=== PATIENT | female | born 1950 | race Caucasian/White ===

== ENCOUNTER 2024-09-20 12:04 | Inpatient (IN) ==
[2024-09-20 13:30] LABS: Hematocrit (blood only) 34.2 % (37.0-47.0); Hemoglobin 11.4 g/dl (12.0-16.0); Mean Corpuscular Hemoglobin 30.8 pg (25.0-34.0); Mean Corpuscular Hgb Conc 33.3 g/dL (32.0-36.0); Mean Corpuscular Volume 92.4 fL (80.0-100.0); Mean Platelet Volume 10.5 fL (9.4-12.4); Platelet Count 238 K/uL (130-400); RDW Coefficient of Variation 13.3 % (11.5-14.5); RDW Standard Deviation 45.5 fL (36.4-46.3); White Blood Count 14.44 K/ul (4.8-10.8)
[2024-09-20 13:34] LABS: Albumin Globulin Ratio 1.5 (0.9-2); Albumin Level 3.7 gm/dl (3.4-5.0); Bilirubin,Total 0.6 mg/dl (0.2-1.0); Calcium 9.1 mg/dl (8.6-10.3); Creatinine Clr Calc Pharmacy 57.9 ml/min; Globulin 2.5 gm/dl (2.5-4.0); Potassium 3.9 mmol/L (3.5-5.1); Total Protein 6.2 gm/dl (6.0-8.3)
[2024-09-20 13:38] LABS: Troponin I High Sensitivity 4.3 pg/ml (0-14)
[2024-09-20 13:40] LABS: Partial Thromboplastin Ratio 0.8; Partial Thromboplastin Time 22 Seconds (21-31); Prothrombin Time 10.9 Seconds (9.0-12.0)
--- NOTE | 2024-09-20 13:47 | Emergency Department Note ---
Impression & Plan Acute diverticulitis, Acute GI bleeding, Syncope and collapse ED Provider Note HISTORY OF PRESENT ILLNESS: Patient is a 74-year-old female presenting with syncope and bloody bowel movements. Patient reports that she woke up this morning felt like she had to have a bowel movement and went to the bathroom and states that the bowl was filled with purple-colored stool and blood clots. She states that she got up from the commode and thinks she passed out, she landed on the floor. She states that she was able to get up and get around and has felt dizzy throughout the morning. She another bowel movement this morning that again appeared purple in color with large blood clots. She states that she again had another syncopal episode, prompting her to present to the emergency department. Denies any history of GI bleeds. She is on a baby aspirin daily after recent right foot surgery. Denies any other antiplatelet or anticoagulant therapies. She states that she feels quite lightheaded and dizzy when she stands up. Denies any chest pain or shortness of breath. Denies any nausea or vomiting. Denies any abdominal pain. ROS: as above PHYSICAL EXAM: Constitutional: Patient appears in no acute distress. HENT: Head: Normocephalic and atraumatic. Eyes: EOMI, PERRL Mouth/Throat: Mucous membranes moist. Neck: Trachea midline. Neck supple. Cardiovascular: Bradycardic with regular rhythm. No murmurs, rubs or gallops. Intact distal pulses. Pulmonary/Chest: No respiratory distress. Breath sounds clear and equal bilaterally. No wheezes or rales. Abdominal: Abdomen soft, no tenderness, rebound or guarding. Rectal: Chaperoned by nursing staff. Patient has maile melena on rectal exam and is Hemoccult positive. No palpable masses or hemorrhoids. Musculoskeletal: No edema, tenderness or deformity noted. Skin: Warm and dry. No rash, erythema, pallor or cyanosis Psychiatric: Appropriate mood and affect for situation. Neurological: Alert and keenly responsive. CN II-XII grossly intact, moving all extremities equally and fully. MDM: - Vitals signs showed bradycardia. - History obtained via patient. History as above. - Chronic conditions affecting care: HTN; HLD; hypothyroidism - Differential diagnoses include, but are not limited to: diverticular bleed; gastritis; bleeding peptic ulcer; symptomatic anemia; ACS; dysrhythmia - Order placed for continuous cardiac monitoring. At this time, monitor showed rate of 56 bpm with normal sinus rhythm, per my interpretation. - External medical records reviewed. Operative report dated 09/10/2024 was reviewed. Patient had right foot fourth and fifth digit hammertoe correction with fixation performed - EKG interpreted by myself showed normal sinus rhythm. Bradycardic with rate of 57 bpm. QT 448. No acute ischemic changes. - Laboratory workup interpreted by myself showed leukocytosis (WBC 14.44); anemia (Hgb 11.4); normal PT/INR; stable electrolytes; hyperglycemia (glucose 137); normal troponin - Patient given 80 mg IV protonix. - Type and screen ordered. - CT abdomen/pelvis with IV contrast showed evidence of acute diverticulitis, per radiology. - IV zosyn ordered - CXR negative for pneumonia, per my interpretation. - Discussion was had with keycase assembler about patient's case and need for admission - Hospitalist consulted for admission - Patient admitted to [facility] for further evaluation and management. ASSESSMENT AND PLAN: Diagnosis: Acute diverticulitis; acute GI bleeding; syncope and collapse Plan: admit Past Med/Surg History Problem List (Updated 09/20/24 @ 15:25 by Amanda Odom MD) Syncope and collapse (Acute) Acute GI bleeding (Acute) Acute diverticulitis (Acute) Medical History (Updated 09/20/24 @ 15:25 by Amanda Odom MD) History of gout Osteoarthritis Diverticular disease Hypothyroidism Hypertension Hyperlipidemia Surgical History History of bilateral tubal ligation History of colonoscopy History of cholecystectomy History of colon resection per pt in @ [facility]--8 inches removed due to diverticulitis History of tooth extraction partial lower/upper dentures Family History Other No family history of adverse response to anesthesia Social History Smoking Status: Never smoker Tobacco Type: Cigarettes Second Hand Exposure: No; Do You Dip or Chew Tobacco: No; Hx Alcohol Use: Yes Hx Substance Use: No Preferred Language: Thai Communication Ability: Effective Program Director Scouting Required: No Beliefs That Will Affect Care: None Current Living Situation: Spouse Feels Safe at Home: Yes Assistive Devices: Denture - Upper, Denture - Lower and Glasses Allergies Allergies Allergy/AdvReac Type Severity Reaction Status Date / Time No Known Allergies Allergy Verified 09/08/24 09:24 Home Meds Home Medications Medication Instructions Recorded Confirmed allopurinol 100 mg tablet 100 mg PO QAM 09/07/24 09/20/24 cyanocobalamin (vitamin B-12) 1,000 mcg PO QAM 09/07/24 09/20/24 1,000 mcg tablet (Vitamin B-12) levothyroxine 75 mcg tablet 75 mcg PO QAM 09/07/24 09/20/24 lisinopril 20 1 tab PO QAM 09/07/24 09/20/24 mg-hydrochlorothiazide 25 mg tablet potassium chloride 10 mEq 20 meq PO QAM 09/07/24 09/20/24 tablet,extended release(part/cryst) (Klor-Con M) rosuvastatin 10 mg tablet 10 mg PO QAM 09/07/24 09/20/24 Results & Data (ED) Vital Signs Vital Signs - 24 hr 09/20/24 12:05 09/20/24 13:04 09/20/24 13:04 Temperature 36.8 C Temperature Source Temporal Artery Scan Pulse Rate - Lying Pulse Rate - Sitting Pulse Rate - Standing Pulse Rate 62 Pulse Rate [Apical] 66 Respiratory Rate 20 19 Respiratory Effort / Characteristics Non-Labored Spontaneous Respiratory Depth Normal Respiratory Pattern Blood Pressure - Lying Blood Pressure - Sitting Blood Pressure- Standing Blood Pressure 144/80 H Blood Pressure [Right Arm] 132/56 L Blood Pressure Mean 101 Blood Pressure Mean [Right Arm] 81 Pulse Oximetry 97 92 Oxygen Delivery Method Room Air Room Air Room Air Sepsis Recent Fever Within 48 Hours No Sepsis New/Unexplained Change in Mental Status No Sepsis Action Taken by Nursing No Action Required 09/20/24 13:54 09/20/24 13:58 09/20/24 15:16 Temperature Temperature Source Pulse Rate - Lying 56 L Pulse Rate - Sitting 66 Pulse Rate - Standing 76 Pulse Rate 56 L Pulse Rate [Apical] 68 Respiratory Rate 18 Respiratory Effort / Characteristics Non-Labored Spontaneous Respiratory Depth Normal Respiratory Pattern Regular Blood Pressure - Lying 122/62 Blood Pressure - Sitting 131/67 Blood Pressure- Standing 134/69 Blood Pressure Blood Pressure [Right Arm] 148/70 H Blood Pressure Mean Blood Pressure Mean [Right Arm] 96 Pulse Oximetry 96 Oxygen Delivery Method Room Air Sepsis Recent Fever Within 48 Hours Sepsis New/Unexplained Change in Mental Status Sepsis Action Taken by Nursing Laboratory Data 09/20/24 12:46 09/20/24 12:46 Lab Results 09/20/24 09/20/24 Range/Units 12:46 13:41 WBC 14.44 H (4.8-10.8) K/ul RBC 3.70 L (4.20-5.40) M/uL Hgb 11.4 L (12.0-16.0) g/dl Hct 34.2 L (37.0-47.0) % MCV 92.4 (80.0-100.0) fL MCH 30.8 (25.0-34.0) pg MCHC 33.3 (32.0-36.0) g/dL RDW Std Deviation 45.5 (36.4-46.3) fL RDW Coeff of Afua 13.3 (11.5-14.5) % Plt Count 238 (130-400) K/uL MPV 10.5 (9.4-12.4) fL PT 10.9 (9.0-12.0) Seconds INR 1.0 (0.9-1.1) APTT 22 (21-31) Seconds PTT Ratio 0.8 Sodium 140 (136-145) mmol/L Potassium 3.9 (3.5-5.1) mmol/L Chloride 105 (98-107) mmol/L Carbon Dioxide 30 (21-32) mmol/L Anion Gap 5 (3-11) BUN 20 (6-23) mg/dl Creatinine 0.87 (0.6-1.2) mg/dl Est Cr Clr Drug Dosing 57.9 ml/min eGFR 69.44 BUN/Creatinine Ratio 23.0 H (10-20) Glucose 137 H (70-99(Fasting)) mg/dl Calcium 9.1 (8.6-10.3) mg/dl Total Bilirubin 0.6 (0.2-1.0) mg/dl AST 15 (13-39) U/L ALT 8 (7-52) U/L Alkaline Phosphatase 69 (34-104) U/L Troponin I High Sens 4.3 (0-14) pg/ml Total Protein 6.2 (6.0-8.3) gm/dl Albumin 3.7 (3.4-5.0) gm/dl Globulin 2.5 (2.5-4.0) gm/dl Albumin/Globulin Ratio 1.5 (0.9-2) POC Stool Occult Blood Positive A (Negative) Blood Type O Positive Antibody Screen NEGATIVE Administered Medications Discontinued Medications Pantoprazole Sodium 80 mg/ (Dextrose) 120 mls @ 480 mls/hr IV ONE STA Stop: 09/20/24 13:54 Last Infusion: 09/20/24 14:52 Dose: Infused Documented By: Admin: 09/20/24 14:20 Dose: 480 mls/hr Documented By: ELEUTERIO Piperacillin Sod/Tazobactam Sod (Zosyn) 4.5 gm in 100 mls @ 200 mls/hr IV NOW ONE; Protocol Stop: 09/20/24 15:23 Last Admin: 09/20/24 15:14 Dose: 200 mls/hr Documented By: ELEUTERIO Ioversol (Optiray 320 100ml) 94 ml IV ONCE ONE Stop: 09/20/24 14:08 Last Admin: 09/20/24 14:07 Dose: 94 ml Documented By: GODWIN Imaging Data Radiologist's Impression: Abdomen/Pelvis CT 09/20/24 12:42 CT abd pelvis IV con only CLINICAL HISTORY: abdominal pain, dizziness, rectal bleeding TECHNIQUE: Helical axial images of the abdomen and pelvis were obtained and displayed. Automated dose lowering techniques and/or adjustment according to patient size were utilized for this exam. This exam was performed with intravenous contrast. CT DOSE: 1320.32 mGy.cm COMPARISON: None available at the time of this dictation. FINDINGS: Lower chest: No acute abnormality. Liver: Unremarkable. No focal lesions are seen. Gallbladder and biliary tree: Patient is status post cholecystectomy. No intra- or extrahepatic biliary ductal dilation. Pancreas: Unremarkable, no focal lesions. Spleen: Splenule is incidentally noted. Adrenals: Unremarkable. Kidneys and ureters: Renal cysts are seen. Bladder: Unremarkable. Reproductive organs: Unremarkable. Bowel: Numerous diverticula are seen. Colonic wall thickening and fat stranding is seen in the sigmoid colon. Postsurgical changes of bowel resection are seen. The appendix appears normal. Lymph nodes Retroperitoneal: Unremarkable. Pelvic: Unremarkable. Mesenteric: Unremarkable. Peritoneum: Fat stranding is seen in the left lower quadrant. No pneumoperitoneum or drainable fluid collection. Vessels: Atherosclerotic calcifications are seen. Abdominal wall: A fat-containing umbilical hernia is seen. Bones: Degenerative changes in the visualized spine. IMPRESSION: Findings are compatible with acute diverticulitis without evidence of perforation or abscess. ACT 112: Negative or not required by law. Electronically signed by: Ric Kilgore M.D. 09/20/2024 2:44 PM Chest X-Ray 09/20/24 14:24 XR chest 1V portable CLINICAL HISTORY: Syncope. COMPARISON STUDY: Chest radiograph August 12, 2024. FINDINGS: Lung volumes are normal. Lungs are clear. There is no pneumothorax or pleural effusion. Cardiac size is normal. Mediastinal contours are normal. There is no evidence for pulmonary edema. IMPRESSION: No acute cardiopulmonary findings. ACT 112: Negative or not required by law. Electronically signed by: Daniel Hein M.D. 09/20/2024 2:55 PM Discharge Plan Visit Data Chief Complaint: Rectal Bleed Stated Complaint: RECTAL BLEEDING, SHAKING ED Provider: Amanda Odom Discharge Problem: Acute diverticulitis, Acute GI bleeding, Syncope and collapse Forms Stand Alone Forms: [facility] [employer] Prescriptions Prescriptions: No Action cyanocobalamin (vitamin B-12) [Vitamin B-12] 1,000 mcg Tablet 1,000 mcg PO QAM allopurinol 100 mg Tablet 100 mg PO QAM levothyroxine 75 mcg Tablet 75 mcg PO QAM lisinopril-hydrochlorothiazide 20-25 mg Tablet 1 tab PO QAM rosuvastatin 10 mg Tablet 10 mg PO QAM potassium chloride [Klor-Con M10] 10 mEq Tablet,Er Particles/Crystals 20 meq PO QAM Referrals Referrals: PCP,NO [Physician] -
[2024-09-20] MEDS: OPTIRAY 320 100ml IV ONE (14:07)
[2024-09-20] MEDS: PANTOprazole 80 MG in DEXTROSE 5% 100 ML IV STA (14:20)
--- NOTE | 2024-09-20 14:46 | CT Scan Report ---
CT abd pelvis IV con only CLINICAL HISTORY: abdominal pain, dizziness, rectal bleeding TECHNIQUE: Helical axial images of the abdomen and pelvis were obtained and displayed. Automated dose lowering techniques and/or adjustment according to patient size were utilized for this exam. This e xam was performed with intravenous contrast. CT DOSE: 1320.32 mGy.cm COMPARISON: None available at the time of this dictation. FINDINGS: Lower chest: No acute abnormality. Liver: Unremarkable. No focal lesions are seen. Gallbladder and biliary tree: Patient is status post cholecystectomy. No intra- or extrahepatic bilia ry ductal dilation. Pancreas: Unremarkable, no focal lesions. Spleen: Splenule is incidentally noted. Adrenals: Unremarkable. Kidneys and ureters: Renal cysts are seen. Bladder: Unremarkable. Reproductive organs: Unremarkable. Bowel: Numerous diverticula are seen. Colonic wall thickening and fat stranding is seen in the sigmoi d colon. Postsurgical changes of bowel resection are seen. The appendix appears normal. Lymph nodes Retroperitoneal: Unremarkable. Pelvic: Unremarkable. Mesenteric: Unremarkable. Peritoneum: Fat stranding is seen in the left lower quadrant. No pneumoperitoneum or drainable fluid collection. Vessels: Atherosclerotic calcifications are seen. Abdominal wall: A fat-containing umbilical hernia is seen. Bones: Degenerative changes in the visualized spine. IMPRESSION: Findings are compatible with acute diverticulitis without evidence of perforation or abscess. ACT 112: Negative or not required by law. Electronically signed by: Ric Kilgore M.D. 09/20/2024 2:44 PM
--- NOTE | 2024-09-20 14:57 | XRay Report ---
XR chest 1V portable CLINICAL HISTORY: Syncope. COMPARISON STUDY: Chest radiograph August 12, 2024. FINDINGS: Lung volumes are normal. Lungs are clear. There is no pneumothorax or pleural effusion. Car diac size is normal. Mediastinal contours are normal. There is no evidence for pulmonary edema. IMPRESSION: No acute cardiopulmonary findings. ACT 112: Negative or not required by law. Electronically signed by: Daniel Hein M.D. 09/20/2024 2:55 PM
[2024-09-20] MEDS: PIPERACILLIN/TAZOBACTAM 4.5 GM/100 ML BAG IV ONE (15:14)
--- NOTE | 2024-09-20 15:22 | History & Physical Report ---
Date of Service September 20, 2024 Assessment & Plan (1) Acute GI bleeding: Plan: Massiel presents after two episodes of dark/purple bloody stools overnight with one episode of syncope. She did not hit her head. Recent foot surgery 09/08, started on ASA 81mg for DVT prevention and meloxicam for pain control taking q6 hours for the first 1-2 days, now 1-2 times per day. Hgb dropped 14.8 (on 08/12) --> 11.4 Stool Occult Blood: positive - ER provider reports melena during exam Received 80mg IV Protonix in the ED, continue 40mg IV BID GI consulted Keep NPO - strict Repeat H&H this evening AM CBC and BMP (2) Acute diverticulitis: Plan: CT A/P: acute diverticulitis without evidence of perforation or abscess. WBC 14 on admission. Afebrile. Continue Zosyn (3) Syncope and collapse: Plan: CXR: no acute cardiopulmonary findings EKG: sinus bradycardia, no ST changes Patient reports recent echo completed last month as part of pre-operative workup. Suspect due to blood/volume loss Lisinopril/HCTZ - held Plan Chronic stable medical conditions: * gout allopurinol held while strict NPO * HLD rosuvastatin held while strict NPO * hypothyroid Synthroid held while strict NPO Dispo: med/tele DVT proh: hold chemical ppx with possible GIB, SCDs History of Present Illness Primary Care Provider: Sirisha Vallejo DO Massiel is a 74F with a past medical hx of Gout, HLD, HTN, hypothyroid and prediabetes. Recent right foot fourth and fifth digit hammertoe Correction on 09/08, baby aspirin daily since. She presents to the ER after 2 episodes of bloody stools. states she got up in the middle the night and had pain with her bowel movement and saw purpleish blood in the toilet. When she tried to stand up she felt very dizzy and weak and took a while to regain her strength. When she did finally stand up she had a syncopal episode. She denies hitting her head. She made back to bed and got up about 1 hour later and had another bowel movement with more clots at this time and blood. She states the blood just feels the toilet does not seem to be mixed in with the stool, she cannot really see the stool. She reports lower abdominal pain since the first bowel movement that has not resolved, however this is mild. Patient has had diverticulitis before with a history of colon resection. She de nies a history of GI bleeding. Of note, patient had recent foot surgery on 09/08 and was placed on baby aspirin and has been taking meloxicam for pain. States for the first 1 to 2 days she was taking meloxicam every 6 hours. Over the last few days she is not taking the meloxicam 1-2 times a day. Recent changes in medications: thyroid medication, lower doses Take medications today: no Alcohol: no Smoking: none CPAP: no Code Status: DNR/DNI ER course: 80mg IV protonix Zosyn x1 Allergies Allergy/AdvReac Type Severity Reaction Status Date / Time No Known Allergies Allergy Verified 09/08/24 09:24 Home Medications Medication Instructions Recorded Confirmed Type allopurinol 100 mg tablet 100 mg PO QAM 09/07/24 09/20/24 History cyanocobalamin (vitamin B-12) 1,000 mcg PO QAM 09/07/24 09/20/24 History 1,000 mcg tablet (Vitamin B-12) levothyroxine 75 mcg tablet 75 mcg PO QAM 09/07/24 09/20/24 History lisinopril 20 1 tab PO QAM 09/07/24 09/20/24 History mg-hydrochlorothiazide 25 mg tablet potassium chloride 10 mEq 20 meq PO QAM 09/07/24 09/20/24 History tablet,extended release(part/cryst) (Klor-Con M) rosuvastatin 10 mg tablet 10 mg PO QAM 09/07/24 09/20/24 History Past Med/Surg History Problem List Syncope and collapse (Acute) Acute GI bleeding (Acute) Acute diverticulitis (Acute) Medical History History of gout Osteoarthritis Diverticular disease Hypothyroidism Hypertension Hyperlipidemia Surgical History History of bilateral tubal ligation History of colonoscopy History of cholecystectomy History of colon resection per pt in 1990s @ [facility]--8 inches removed due to diverticulitis History of tooth extraction partial lower/upper dentures Family History Other No family history of adverse response to anesthesia Social History Smoking Status: Never smoker Tobacco Type: Cigarettes Second Hand Exposure: No; Do You Dip or Chew Tobacco: No; Hx Alcohol Use: Yes Hx Substance Use: No Preferred Language: [place] Communication Ability: Effective Pipe Organ Installer Required: No Beliefs That Will Affect Care: None Current Living Situation: Spouse Feels Safe at Home: Yes Assistive Devices: Denture - Upper, Denture - Lower and Glasses Review of Systems Review of Systems: All systems reviewed & are unremarkable except as noted in Subjective Physical Exam Physical Exam: General: NAD, VS as above, sitting in bed Resp: normal respiratory effort, lungs clear to auscultation CV: RRR, + murmur, Abd: normal bowel sounds, non tender, Extremities: Moves all extremities, no edema. Right foot in boot postoperatively. Neuro: A&O x3, Skin: intact, no lesions noted. does NOT appear pale. Results & Data Results & Data Vital Signs (Past 12 Hours) Vital Signs Temp Pulse Pulse Resp BP BP Pulse Ox 09/20/24 13:58 56 L 09/20/24 13:04 09/20/24 13:04 66 19 132/56 L 92 09/20/24 12:05 98.2 F 62 20 144/80 H 97 O2 Del Method 09/20/24 13:58 09/20/24 13:04 Room Air 09/20/24 13:04 Room Air 09/20/24 12:05 Room Air Laboratory Results CBC, coag, chemistry reviewed Diagnostic Findings chest x-ray Abdominal CT reviewed Supervising Physician Co-Signing Physician Notes Patient seen and examined, chart reviewed, case discussed with Martina Dee PA-C and I agree with the assessment and plan as above except as otherwise noted Labs and images reviewed 74-year-old female who presents with syncope and collapse and GI bleeding. Crampy painful BM with purple/red BM overnight. Passed out after standing. 2nd BM later in the morning with blood and clots. Prior hx diverticulitis with pa rtial colon resection in the past. She is found to have acute diverticulitis on CT. Hemoglobin 11.4 from baseline of 14.8. BUN is not elevated, suspect lower GI bleed in the setting of diverticulitis. Agree with Zosyn. 2 units matched, patient is not tachycardic or hypotensive and remains with hemoglobin greater than 10. Will trend H&H and follow clinically. Agree with Zosyn. Has been on baby aspirin and meloxicam q6h now 1-2 times a day after foot surgery 09/08/24. Is at risk of UGIB due to aspirin, meloxicam use and with purplish blood ?melena, although BUN is wnl. Will continue PPI for now and GI is consulted. Agree with management as above. Patient feels greatly improved at the bedside and is no longer lightheaded or dizzy, she is normotensive and without tachycardia. PG Care Time/CCT Total # of Minutes Spent Total Time Spent with Patient: Total time spent is greater than 50% in coordination of care (as documented) at patient's floor/unit and/or counseling patient: Coding Level of Care Code 28726 INT INP/OBS CARE 3/75MIN Diagnoses Acute GI bleeding K92.2 Acute diverticulitis K57.92 Syncope and collapse R55
--- NOTE | 2024-09-20 16:20 | Gastrointestinal Consultation ---
Date of Consultation September 20, 2024 Assessment & Plan (1) Acute diverticulitis: (2) Acute GI bleeding: Plan -Advise continuing IV antibiotics for diverticulitis -Continue to monitor H/H -PPI therapy to cover for potential upper GI source given NSAID use, though patient has no upper GI symptoms. -Will need eventual endoscopic evaluation once recovered from diverticulitis Supervising Physician Co-Signing Physician Notes I examined the patient and reviewed patient's chart , laboratory data and imaging studies. I agree with with assessment and plan of care as suggested by advanced practice provider. Presents with mild acute diverticulitis and bloody bowel movements, likely diverticular bleed. History of diverticulitis 4 years ago. Continue antibiotics. Monitor CBC. If remains stable defer colonoscopy after diverticulitis heals in 4 to 6 weeks. History of Present Illness Reason for Consultation: GI bleeding History of Present Illness Patient is a 74 yo female with PMH of Gout, HLD, HTN, hypothyroidism, & prediabetes. She had a recent surgery for hammertoe in August 2024 and takes Meloxicam and baby aspirin daily. She felt dizzy and weak at home and moved her bowels to see a dark purple stool.She presented to the ED. She notes a history of colonoscopy within the past 5 years. She has a history of multiple abdominal surgeries and diverticulitis with history of bowel resection. Ct scan of the abdomen/pelvis today shows an acute diverticulitis of the sigmoid colon. H/H 11.4/34.2. She notes some associated LLQ tenderness. No heartburn or reflux. No epigastric pain. She was started on IV Zosyn in the ED. Allergies Allergy/AdvReac Type Severity Reaction Status Date / Time No Known Allergies Allergy Verified 09/08/24 09:24 Home Medications Medication Instructions Recorded Confirmed Type allopurinol 100 mg tablet 100 mg PO QAM 09/07/24 09/20/24 History cyanocobalamin (vitamin B-12) 1,000 mcg PO QAM 09/07/24 09/20/24 History 1,000 mcg tablet (Vitamin B-12) levothyroxine 75 mcg tablet 75 mcg PO QAM 09/07/24 09/20/24 History lisinopril 20 1 tab PO QAM 09/07/24 09/20/24 History mg-hydrochlorothiazide 25 mg tablet potassium chloride 10 mEq 20 meq PO QAM 09/07/24 09/20/24 History tablet,extended release(part/cryst) (Klor-Con M) rosuvastatin 10 mg tablet 10 mg PO QAM 09/07/24 09/20/24 History Patient History Medical History History of gout Osteoarthritis Diverticular disease Hypothyroidism Hypertension Hyperlipidemia Surgical History History of bilateral tubal ligation History of colonoscopy History of cholecystectomy History of colon resection per pt in 1990s @ [facility]--8 inches removed due to diverticulitis History of tooth extraction partial lower/upper dentures Family History Other No family history of adverse response to anesthesia Social History Smoking Status: Never smoker Tobacco Type: Cigarettes Second Hand Exposure: No; Do You Dip or Chew Tobacco: No; Hx Alcohol Use: Yes Hx Substance Use: No Preferred Language: Divehi Communication Ability: Effective Sludge Filtration Attendant Required: No Beliefs That Will Affect Care: None Current Living Situation: Spouse Feels Safe at Home: Yes Assistive Devices: Denture - Upper, Denture - Lower and Glasses Review of Systems Constitutional: no fever and no chills Respiratory: no cough and no dyspnea Cardiovascular: no chest pain Gastrointestinal: + abdominal pain, + blood in stools and + melena Psychiatric: no problem reported Physical Exam Constitutional: well developed Respiratory: normal respiratory effort Cardiovascular: Rate/Rhythm: regular rate Gastrointestinal (Abdomen): Inspection/Auscultation: abdomen normal to inspection and normal bowel sounds Percussion/Palpation: + abdomen tender and abdomen soft Psychiatric: Orientation: alert and oriented x 3 Results & Data Vital Signs (Past 12 Hours) Vital Signs Temp Pulse Pulse Resp BP BP Pulse Ox 09/20/24 15:16 68 18 148/70 H 96 09/20/24 13:58 56 L 09/20/24 13:04 09/20/24 13:04 66 19 132/56 L 92 09/20/24 12:05 36.8 C 62 20 144/80 H 97 O2 Del Method 09/20/24 15:16 Room Air 09/20/24 13:58 09/20/24 13:04 Room Air 09/20/24 13:04 Room Air 09/20/24 12:05 Room Air PG Care Time/CCT Total # of Minutes Spent Total Time Spent with Patient: Total time spent is greater than 50% in coordination of care (as documented) at patient's floor/unit and/or counseling patient: Coding Level of Care Code 15025 IN/OBS CONSULT LVL 3,45M Diagnoses Acute diverticulitis K57.92 Acute GI bleeding K92.2
--- NOTE | 2024-09-20 17:20 | Electrocardiogram Report ---
Test Reason : Blood Pressure : */* mmHG Vent. Rate : 57 BPM Atrial Rate : 57 BPM P-R Int : 160 ms QRS Dur : 66 ms QT Int : 448 ms P-R-T Axes : 20 -15 40 degrees QTcB Int : 436 ms Sinus bradycardia Minimal voltage criteria for LVH, may be normal variant Abnormal ECG No previous ECGs available Confirmed by Mendoza Shen ([id number]) on 09/20/2024 5:20:13 PM Referred By: Confirmed By: Mendoza Shen
[2024-09-20] MEDS: metroNIDAZOLE 500 MG/100 ML BAG IV SCH (17:55)
--- OUTSIDE RECORDS SUMMARY | 2024-09-20 18:55 | External Medical Summary | Continuity of Care Document ---
Author Name Unknown Organization [facility] [id number] Address [address] [place] [id number] Care Team Providers Care Air Table Operator Name Role Phone Sirisha Vallejo Primary Care Physician [phone] Encounter [facility] [id number] Date(s): 09/15/24 - 09/15/24 [facility] [address] [id number] [place] [id number] Encounter Diagnosis S/P foot surgery, right(Discharge Diagnosis) - 09/15/24 Discharge Disposition: Home or Self Care Attending Physician: GIOVANA Bailey Christina L Referring Physician: DO Vallejo Stephanie Marie Allergies, Adverse Reactions, Alerts No Known Allergies Assessment and Plan Extracted from: Title:Follow Up Visit Author:GIOVANA Bailey, Irais Rogers Date:09/15/24 1.S/P foot surgery, right patient to continue decrease activity levelwith use of single-point cane in postop shoe post op xrays reviewed todayshowing normal postop position of the right foot dressings removed and incisions cleanedwith Hibiclens dressings re appliedconsisting of Adaptic gauze roll gauze and an Dashawn bandage sutureswill remain in place for 1 additional week patient to wear cam boot no calf pain noted and discussed signs of a DVT continue Tylenol/ibuprofen for pain follow upOctober 31 at 8:45 AM Medications allopurinol 100 mg oral tablet Start: 04/22/24 7:38:00 AM EDT, 1 tab, PO, Daily, Disp# 90 tab, Refills: 1, Pharmacy: [facility] [id number] Start Date: 04/22/24 Status: Ordered Bactrim DS 800 mg-160 mg oral tablet Start: 08/17/24 12:25:00 PM EDT, trimethoprim 1 tab, PO, bid, Disp# 6 tab, Pharmacy: [facility]/pharmacy #[id number] Start Date: 08/17/24 Stop Date: 08/20/24 Status: Ordered hydrochlorothiazide-lisinopril 25 mg-20 mg oral tablet Start: 09/17/24 7:55:00 AM EDT, 1 tab, PO, Daily, Disp# 90 tab, Refills: 0, Pharmacy: [facility] [id number] Start Date: 09/17/24 Status: Ordered Klor-Con M10 oral tablet, extended release Start: 10/10/23 9:44:00 AM EST, 2 tab, PO, Daily, Disp# 180 tab, Refills: 3, [id number] Start Date: 10/10/23 Stop Date: 10/04/24 Status: Ordered levothyroxine 75 mcg (0.075 mg) oral tablet Start: 08/22/24 8:43:00 PM EDT, 1 tab, PO, Daily, Disp# 30 tab, Refills: 2, Pharmacy: [facility]/pharmacy #[id number] Start Date: 08/22/24 Stop Date: 11/20/24 Status: Ordered meloxicam 7.5 mg oral tablet Start: 10/10/23 9:41:00 AM EST, 1 tab, PO, Daily, Disp# 30 tab, Refills: 5, [id number] Start Date: 10/10/23 Stop Date: 04/07/24 Status: Ordered [place] 5 mg-325 mg oral tablet Start: 08/12/24 1:28:00 PM EDT, 1 tab, PO, q6h, Disp# 30 tab, Refills: 0, not to exceed 8 tablets/day, PRN: as needed for pain, Pharmacy: [facility]/pharmacy #[id number] Start Date: 08/12/24 Stop Date: 08/19/24 Status: Ordered rosuvastatin 10 mg oral tablet Start: 10/10/23 9:38:00 AM EST, 1 tab, PO, Daily, Disp# 90 tab, Refills: 3, Pharmacy: [facility]/pharmacy #[id number] Start Date: 10/10/23 Stop Date: 10/04/24 Status: Ordered Vitamin B12 50 mcg oral tablet Start: 06/25/23 12:55:00 PM EDT, 1 tab, PO, Daily Start Date: 06/25/23 Status: Ordered Mental Status 09/15/24 Barriers to Learning one year None evide nt Mandatory Health Literacy Documentation Yes Health Literacy Communication Barriers N ever Primary Language Persian Problem List Condition Confirmation Course Effective Dates Status H ealth Status Informant Right foot pain Confirmed Active Gout Confirmed Active Hammertoe of right foot Confirmed Active S/P foot surgery, right Confirmed Active Hyperlipidemia Confirmed Active Hypertension Confirmed Active Hypothyroidism Confirmed Active Prediabetes Confirmed Active Diagnosis Diagnosis Type Effective Dates Health Status Cl inical Service Informant S/P foot surgery, right Discharge Diagnosis 09/15/24 Non-Specified Procedures Procedure Date Related Diagnosis Body Site Status Colon operation Completed Social History Social History Type Response Smoking Status Never smoked cigaret mckayla Sex Female Sex Representation Female (finding) Ortho Outpt Note * GIOVANA Bailey Christina L: PERFORM Event Display: Ortho Outpt Note Authored Date: [id number] Chief Complaint right foot post-op,, Primary Care Provider DO Vallejo Stephanie Marie Referring Provider GIOVANA Bailey Christina L Subjective Patient is a very pleasant 74-year-old female presenting today for postop evaluation, status post right foot fourth and fifth digithammertoe correction surgery with fixation. Postop visit #1. Postop day #7. Date of surgery September 08, 2024 Patient is doing well she is compliant with recommended offloading restrictions after surgery she is only walking with her single-point cane with weight to the right heelshe is using her postop shoe, taking her aspirin 81 mg for DVT prevention,and has no signs consistent with a DVT,she has nopain in her calf and actually no discomfortshe took 2 meloxicam at the beginning of the surgery and felt that it improved her paincurrently she is in no acute discomfort. Review of Systems No pertinent positives Objective Physical Exam Problem focused right foot: Dorsalis pedis pulse palpable 2 out of 4, posterior tibial pulse palpable 2 out of 4, capillary refill time less than 3 seconds,skin turgor is good to all digits of the right foot pedal hair is present. Gross sensation intact all digits of the right foot. Skin is clean dry and intact without maceration or breakdown there are no open wounds or lesions. Right foot fourthtoe incisionall sutures intact no dehiscence no cellulitis no drainage toe in anatomical positionK wire at distal aspect of the toe without drainage Right footfifth toe incisionall sutures intact no dehiscence no cellulitis no drainageK wire present at distal aspect of toe without drainagetoe in anatomical position Range of motion not yet checked due to recent Surgery Calfis supple without swelling continuing aspirin 81 mg for DVT prevention X-Ray dictation 3 views right foot:3 views of the right foot show stable and intact fixation at right fourth and fifth digitfollowing hammertoe corrective surgery. Stable postop appearance of the foot. I personally performed the interpretation of 3 views of the right foot. Assessment/Plan 1.S/P foot surgery, right patient to continue decrease activity levelwith use of single-point cane in postop shoe post op xrays reviewed todayshowing normal postop position of the right foot dressings removed and incisions cleanedwith Hibiclens dressings re appliedconsisting of Adaptic gauze roll gauze and an Dashawn bandage sutureswill remain in place for 1 additional week patient to wear cam boot no calf pain noted and discussed signs of a DVT continue Tylenol/ibuprofen for pain follow upOctober 31 at 8:45 AM Electronic Signature on File Electronically Reviewed/Signed by: Erma Bailey DPM Author Signature Dt/Tm:09/15/2024 01:23 PM Division of Sports Medicine CLR Patient Care team information Care Team Personnel Name: DO Vallejo Stephanie Marie Position: Physician - Family Med Member Role: Primary Care Provider Address: [address] [place] [address] [place] Care Team Related Persons Name: RAYMUNDO Blake, LUIS A Davila
[2024-09-20] MEDS: PANTOprazole 40 MG/10 ML SYR IV SCH ×2 (20:02→21:52)
[2024-09-20] MEDS: CIPROFLOXACIN / D5W 400 MG/200 ML BAG IV SCH (20:07)
[2024-09-20 20:43] LABS: Hematocrit (blood only) 31.1 % (37.0-47.0); Hemoglobin 10.4 g/dl (12.0-16.0)
[2024-09-20] MEDS ORDERED: CIPROFLOXACIN / D5W 200 MG/100 ML BAG IV SCH (21:00)
[2024-09-20] MEDS ORDERED: ACETAMINOPHEN 1,000 MG/100 ML VIAL IV PRN (21:40)
[2024-09-20] MEDS: PIPERACILLIN/TAZOBACTAM 4.5 GM/100 ML BAG IV SCH (22:31)
[2024-09-21 06:26] LABS: Basophils # (auto) 0.03 K/uL (0.00-0.20); Basophils % (auto) 0.2 %; Eosinophils % (auto) 0.8 %; Hematocrit (blood only) 26.9 % (37.0-47.0); Hemoglobin 9.1 g/dl (12.0-16.0); Immature Granulocytes # (auto) 0.06 K/uL (0.01-0.20); Immature Granulocytes % (auto) 0.5 %; Lymphocytes # (auto) 2.69 K/uL (1.20-3.40); Lymphocytes % (auto) 22.1 %; Mean Corpuscular Hemoglobin 30.8 pg (25.0-34.0); Mean Corpuscular Hgb Conc 33.8 g/dL (32.0-36.0); Mean Corpuscular Volume 91.2 fL (80.0-100.0); Mean Platelet Volume 10.5 fL (9.4-12.4); Monocytes # (auto) 0.84 K/uL (0.11-0.59); Monocytes % (auto) 6.9 %; Neutrophils # (auto) 8.44 K/uL (1.40-6.50); Neutrophils % (auto) 69.5 %; Platelet Count 209 K/uL (130-400); RDW Coefficient of Variation 13.4 % (11.5-14.5); RDW Standard Deviation 44.7 fL (36.4-46.3); Red Blood Count 2.95 M/uL (4.20-5.40); White Blood Count 12.16 K/ul (4.8-10.8)
[2024-09-21 06:44] LABS: Calcium 8.5 mg/dl (8.6-10.3); Creatinine Clr Calc Pharmacy 53.3 ml/min; Potassium 3.4 mmol/L (3.5-5.1)
[2024-09-21] MEDS: POTASSIUM CHLORIDE / WTR 10 MEQ/100 ML PLCT IV ONE (09:51)
--- NOTE | 2024-09-21 11:39 | Gastroenterology Progress Note ---
Date of Service September 21, 2024 Assessment & Plan (1) Acute diverticulitis: Plan: -Continue IV antibiotics with eventual transition to po for a total of 10 day treatment course -Continue to monitor H/H and for further ongoing GI bleeding -Will need eventual colonoscopy in 6 weeks -Tolerating a liquid diet at present; Low residue diet to be continued on d/c Admission and Anticipated Discharge Date Admission Date: September 20, 2024 Supervising Physician Co-Signing Physician Notes I examined the patient and reviewed patient's chart , laboratory data and imaging studies. I agree with with assessment and plan of care as suggested by advanced practice provider. Hemoglobin down to 9.1. The patient still has rectal bleeding also decreased. Abdominal pain has improved. Much less tender on abdominal examination. Impression/recommendations: Acute sigmoid diverticulitis and diverticular bleeding. Continue antibiotics. Outpatient colonoscopy in 6 weeks or sooner if bleeding continues. Subjective Patient is a 74 yo female with diverticulitis. She notes her rectal bleeding has improved. She notes some streaks with a bowel movement at this point, but she is no longer having significantly bloody stool. H/H this AM 9.1/26.9. She notes she has some lower abdominal tenderness. She tolerated a liquid diet today. Review of Systems Gastrointestinal: + abdominal pain and + blood in stools Physical Exam Gastrointestinal (Abdomen): Inspection/Auscultation: abdomen normal to insp ection Percussion/Palpation: + abdomen tender and abdomen soft Results & Data Results & Data Vital Signs (Past 12 Hours) Vital Signs Temp Pulse Pulse Resp BP Pulse Ox O2 Del Method 09/21/24 10:49 36.6 C 71 16 130/76 96 Room Air 09/21/24 07:33 36.8 C 65 16 101/56 L 92 Room Air 09/21/24 07:00 65 09/21/24 03:50 37.1 C 74 18 105/58 L 93 Room Air 09/21/24 03:03 73 PG Care Time/CCT Total # of Minutes Spent Total Time Spent with Patient: Total time spent is greater than 50% in coordination of care (as documented) at patient's floor/unit and/or counseling patient: Coding Level of Care Code 53553 SUB INP/OBS CARE 3/50MIN Diagnoses Acute diverticulitis K57.92
[2024-09-21 14:34] LABS: Hematocrit (blood only) 26.9 % (37.0-47.0)
--- NOTE | 2024-09-21 16:06 | Hospitalist Progress Note ---
Date of Service September 21, 2024 Assessment & Plan (1) Acute GI bleeding: Plan: Massiel presents after two episodes of dark/purple bloody stools overnight with one episode of syncope. She did not hit her head. Recent foot surgery 09/08, started on ASA 81mg for DVT prevention and meloxicam for pain control taking q6 hours for the first 1-2 days, now 1-2 times per day. Acute blood loss anemia Hgb dropped 14.8 (on 08/12) Stool Occult Blood: positive - ER provider reports melena during exam Received 80mg IV Protonix in the ED, continue 40mg IV BID GI consult/progress note reviewed 09/21 recommending supportive care w/ IV PPI and IV abx outpatient colonoscopy 4-6 weeks upon discharge Avoid NSAIDs upon discharge. CBC reviewed 09/21: hgb dropped further to 9.1. repeat hgb 09/21 PM: stable at 9. BMP reviewed 09/21: K mildly low 3.4, BUN/Creatinine stable. s/p 10meq IV KCl AM CBC and BMP (2) Acute diverticulitis: Plan: CT A/P: acute diverticulitis without evidence of perforation or abscess. WBC 14 on admission. Afebrile. Continue Zosyn, plan to transition to PO Augmentin upon discharge. CBC reviewed 09/21: negative leukocytosis. (3) Syncope and collapse: Plan: CXR: no acute cardiopulmonary findings EKG: sinus bradycardia, no ST changes Patient reports recent echo completed last month as part of pre-operative workup. Suspect due to blood/volume loss Lisinopril/HCTZ - held, BP remains stable. Plan Chronic stable medical conditions: * gout allopurinol held while strict NPO * HLD rosuvastatin held while strict NPO * hypothyroid Synthroid held while strict NPO Dispo: med/tele DVT proh: hold chemical ppx with possible GIB, SCDs Diet: full liquid, advance as tolerated to low fiber Code status: DNR/DNI Admission and Anticipated Discharge Date Admission Date: September 20, 2024 Subjective Patient seen and examined this AM and PM. Patient states she has had abdominal cramping on and off throughout day. She tolerated clear liquid diet and feels she would be able to eat more. advanced to full liquid for dinner this evening. Patient reports small BM's and notes red streaking on toilet paper. She believes bleeding has slowed down. Denies any additional complaints. Physical Exam Constitutional: WD/WN, vitals as above Eyes: PERRL, conjunctivae normal, anicteric sclerae Respiratory: normal respiratory effort, lungs clear to auscultation Cardiovascular: RRR, no murmur, no edema Gastrointestinal (Abdomen): normal bowel sounds, soft, nontender, no hepatosplenomegaly Psychiatric: A+Ox3, euthymic affect Results & Data Results & Data Vital Signs (Past 12 Hours) Vital Signs Temp Pulse Pulse Resp BP Pulse Ox O2 Del Method 09/21/24 15:17 37.3 C 70 16 125/81 93 Room Air 09/21/24 14:47 72 09/21/24 10:49 36.6 C 71 16 130/76 96 Room Air 09/21/24 07:33 36.8 C 65 16 101/56 L 92 Room Air 09/21/24 07:00 65 PG Care Time/CCT Total # of Minutes Spent Total Time Spent with Patient: Total time spent is greater than 50% in coordination of care (as documented) at patient's floor/unit and/or counseling patient: Coding Level of Care Code 07943 SUB INP/OBS CARE 2/35MIN Diagnoses Acute GI bleeding K92.2 Acute diverticulitis K57.92 Syncope and collapse R55
[2024-09-22 06:53] LABS: Basophils # (auto) 0.04 K/uL (0.00-0.20); Basophils % (auto) 0.3 %; Eosinophils # (auto) 0.15 K/uL (0.00-0.50); Eosinophils % (auto) 1.3 %; Hemoglobin 8.2 g/dl (12.0-16.0); Immature Granulocytes # (auto) 0.04 K/uL (0.01-0.20); Immature Granulocytes % (auto) 0.3 %; Lymphocytes # (auto) 2.09 K/uL (1.20-3.40); Lymphocytes % (auto) 17.8 %; Mean Corpuscular Hemoglobin 30.7 pg (25.0-34.0); Mean Corpuscular Hgb Conc 34.2 g/dL (32.0-36.0); Mean Corpuscular Volume 89.9 fL (80.0-100.0); Mean Platelet Volume 10.6 fL (9.4-12.4); Monocytes # (auto) 0.86 K/uL (0.11-0.59); Monocytes % (auto) 7.3 %; Neutrophils # (auto) 8.54 K/uL (1.40-6.50); Platelet Count 214 K/uL (130-400); RDW Coefficient of Variation 13.2 % (11.5-14.5); RDW Standard Deviation 43.7 fL (36.4-46.3); Red Blood Count 2.67 M/uL (4.20-5.40); White Blood Count 11.72 K/ul (4.8-10.8)
[2024-09-22 07:06] LABS: BUN Creatinine Ratio 9.3 (10-20); Calcium 8.5 mg/dl (8.6-10.3); Creatinine Clr Calc Pharmacy 49.5 ml/min; Potassium 3.1 mmol/L (3.5-5.1)
[2024-09-22] MEDS: POTASSIUM CHLORIDE / WTR 10 MEQ/100 ML PLCT IV SCH (08:37)
[2024-09-22] MEDS: POTASSIUM CHLORIDE CRTAB 20 MEQ TABCR PO SCH (08:37)
[2024-09-22] MEDS: allopurinoL 100 MG TAB PO SCH (09:14)
[2024-09-22] MEDS: ROSUVASTATIN CALCIUM 10 MG TAB PO SCH (09:14)
[2024-09-22] MEDS: LEVOTHYROXINE SODIUM 75 MCG TABLET PO SCH (09:14)
--- NOTE | 2024-09-22 11:50 | Gastroenterology Progress Note ---
Date of Service September 22, 2024 Assessment & Plan (1) Acute diverticulitis: (2) Acute GI bleeding: Plan -Patient feels as though bleeding has stopped; H/H 8.2/24.0. She notes her primary team is monitoring today for further drop. -Advance to low residue diet as tolerated; if unable to tolerate, OK to back off to liquid diet -Patient continues on Protonix 40 mg BID due to any concern for upper GI bleeding, however her BUN is 9 and she has no upper GI symptoms. -Will need outpatient colonoscopy in 6 weeks Admission and Anticipated Discharge Date Admission Date: September 20, 2024 Supervising Physician Co-Signing Physician Notes I examined the patient and reviewed patient's chart , laboratory data and imaging studies. I agree with with assessment and plan of care as suggested by advanced practice provider Subjective Patient is a 74 yo female admitted with diverticulitis with bleeding. She notes that she believes the bleeding has finally stopped as of last evening. H/H 8.2/24.0. She is on IV Cipro & Flagyl. She has improvement of her pain but notes she still has what feels like menstrual cramps. Review of Systems Gastrointestinal: + abdominal pain; no blood in stools Physical Exam Gastrointestinal (Abdomen): Inspection/Auscultation: normal bowel sounds Percussion/Palpation: + abdomen tender Psychiatric: Orientation: alert and oriented x 3 Results & Data Results & Data Vital Signs (Past 12 Hours) Vital Signs Temp Pulse Pulse Resp BP BP Pulse Ox 09/22/24 11:20 37.2 C 68 16 122/72 96 09/22/24 09:03 75 09/22/24 07:46 36.9 C 62 18 129/74 94 09/22/24 02:35 37.7 C H 75 16 118/57 L 92 O2 Del Method 09/22/24 11:20 Room Air 09/22/24 09:03 09/22/24 07:46 Room Air 09/22/24 02:35 Room Air PG Care Time/CCT Total # of Minutes Spent Total Time Spent with Patient: Total time spent is greater than 50% in coordination of care (as documented) at patient's floor/unit and/or counseling patient: Coding Level of Care Code 02968 SUB INP/OBS CARE 3/50MIN Diagnoses Acute diverticulitis K57.92 Acute GI bleeding K92.2
[2024-09-22] MEDS: ACETAMINOPHEN 500 MG TAB PO PRN (15:34)
--- NOTE | 2024-09-22 15:44 | Hospitalist Progress Note ---
Date of Service September 22, 2024 Assessment & Plan (1) Acute GI bleeding: Plan: Massiel presents after two episodes of dark/purple bloody stools overnight with one episode of syncope. She did not hit her head. Recent foot surgery 09/08, started on ASA 81mg for DVT prevention and meloxicam for pain control taking q6 hours for the first 1-2 days, now 1-2 times per day. Acute blood loss anemia Hgb dropped 14.8 (on 08/12) Stool Occult Blood: positive - ER provider reports melena during exam Received 80mg IV Protonix in the ED, continue 40mg IV BID GI consult/progress note reviewed 09/21 recommending supportive care w/ IV PPI and IV abx outpatient colonoscopy 4-6 weeks upon discharge Avoid NSAIDs upon discharge. CBC reviewed 09/22: hgb dropped further to 8.2 repeat hgb 09/22 PM: stable at 9. BMP reviewed 09/22: K low 3.1, BUN/Creatinine stable. s/p 10meq IV KCl x 2 Resumed outpatient PO potassium supplement 09/22. AM CBC and BMP (2) Acute diverticulitis: Plan: CT A/P: acute diverticulitis without evidence of perforation or abscess. WBC 14 on admission. Afebrile. Continue Zosyn, plan to transition to PO Augmentin upon discharge. CBC reviewed 09/22: negative leukocytosis. (3) Syncope and collapse: Plan: CXR: no acute cardiopulmonary findings EKG: sinus bradycardia, no ST changes Patient reports recent echo completed last month as part of pre-operative workup. Suspect due to blood/volume loss Lisinopril/HCTZ - held, BP remains stable. Plan Chronic stable medical conditions: * gout allopurinol held while strict NPO * HLD rosuvastatin held while strict NPO * hypothyroid Synthroid held while strict NPO Dispo: med/tele DVT proh: hold chemical ppx with possible GIB, SCDs Diet: low fiber diet. Code status: DNR/DNI Admission and Anticipated Discharge Date Admission Date: September 20, 2024 Subjective Patient seen and examined this morning. Patient reports to continue to have small dark brown BM's. She has lower abdominal cramping. She was able to eat eggs and toast for breakfast and tolerated it well. Physical Exam 2 Constitutional: WD/WN, vitals as above Eyes: PERRL, conjunctivae normal, anicteric sclerae Respiratory: normal respiratory effort, lungs clear to auscultation Cardiovascular: RRR, no murmur, no edema Gastrointestinal (Abdomen): +LLQ tenderness upon palpation Psychiatric: A+Ox3, euthymic affect Results & Data Results & Data Vital Signs (Past 12 Hours) Vital Signs Temp Pulse Pulse Resp BP BP Pulse Ox 09/22/24 14:22 82 09/22/24 11:20 37.2 C 68 16 122/72 96 09/22/24 09:03 75 09/22/24 07:46 36.9 C 62 18 129/74 94 O2 Del Method 09/22/24 14:22 09/22/24 11:20 Room Air 09/22/24 09:03 09/22/24 07:46 Room Air Laboratory Results 09/22/24 12:59 09/22/24 05:37 PG Care Time/CCT Total # of Minutes Spent Total Time Spent with Patient: Total time spent is greater than 50% in coordination of care (as documented) at patient's floor/unit and/or counseling patient: Coding Level of Care Code 77879 SUB INP/OBS CARE 2/35MIN Diagnoses Acute GI bleeding K92.2 Acute diverticulitis K57.92 Syncope and collapse R55
[2024-09-23 06:33] LABS: Basophils # (auto) 0.03 K/uL (0.00-0.20); Basophils % (auto) 0.3 %; Eosinophils # (auto) 0.25 K/uL (0.00-0.50); Eosinophils % (auto) 2.3 %; Hematocrit (blood only) 23.8 % (37.0-47.0); Hemoglobin 7.9 g/dl (12.0-16.0); Immature Granulocytes # (auto) 0.04 K/uL (0.01-0.20); Immature Granulocytes % (auto) 0.4 %; Lymphocytes # (auto) 2.17 K/uL (1.20-3.40); Lymphocytes % (auto) 20.1 %; Mean Corpuscular Hemoglobin 30.4 pg (25.0-34.0); Mean Corpuscular Hgb Conc 33.2 g/dL (32.0-36.0); Mean Corpuscular Volume 91.5 fL (80.0-100.0); Mean Platelet Volume 10.2 fL (9.4-12.4); Monocytes # (auto) 0.77 K/uL (0.11-0.59); Monocytes % (auto) 7.1 %; Neutrophils # (auto) 7.51 K/uL (1.40-6.50); Neutrophils % (auto) 69.8 %; Platelet Count 211 K/uL (130-400); RDW Coefficient of Variation 13.2 % (11.5-14.5); RDW Standard Deviation 44.2 fL (36.4-46.3); White Blood Count 10.77 K/ul (4.8-10.8)
[2024-09-23 06:42] LABS: BUN Creatinine Ratio 8.7 (10-20); Calcium 8.5 mg/dl (8.6-10.3); Creatinine Clr Calc Pharmacy 46.6 ml/min; Potassium 3.4 mmol/L (3.5-5.1)
[2024-09-23 06:56] LABS: Polychromasia 1+
--- NOTE | 2024-09-23 15:46 | Hospitalist Progress Note ---
Date of Service September 23, 2024 Assessment & Plan (1) Acute GI bleeding: Plan: Massiel presents after two episodes of dark/purple bloody stools overnight with one episode of syncope. She did not hit her head. Recent foot surgery 09/08, started on ASA 81mg for DVT prevention and meloxicam for pain control taking q6 hours for the first 1-2 days, now 1-2 times per day. Acute blood loss anemia Hgb dropped 14.8 (on 08/12) Stool Occult Blood: positive - ER provider reports melena during exam Received 80mg IV Protonix in the ED, continue 40mg IV BID GI consult/progress note reviewed 09/22 recommending supportive care w/ IV PPI and IV abx outpatient colonoscopy 4-6 weeks upon discharge Avoid NSAIDs upon discharge. CBC reviewed 09/23: hgb dropped further to 7.9 BMP reviewed 09/23: K low 3.4, BUN/Creatinine stable. Resumed outpatient PO potassium supplement 09/22. AM CBC and BMP (2) Acute diverticulitis: Plan: CT A/P: acute diverticulitis without evidence of perforation or abscess. WBC 14 on admission. Afebrile. Continue Zosyn, plan to transition to PO Augmentin upon discharge. CBC reviewed 09/23: negative leukocytosis. (3) Syncope and collapse: Plan: CXR: no acute cardiopulmonary findings EKG: sinus bradycardia, no ST changes Patient reports recent echo completed last month as part of pre-operative workup. Suspect due to blood/volume loss Lisinopril/HCTZ - held, BP remains stable. Plan Chronic stable medical conditions: * gout allopurinol held while strict NPO * HLD rosuvastatin held while strict NPO * hypothyroid Synthroid held while strict NPO Dispo: med/tele DVT proh: hold chemical ppx with possible GIB, SCDs Diet: low fiber diet. Code status: DNR/DNI Admission and Anticipated Discharge Date Admission Date: September 20, 2024 Subjective Patient seen and examined this morning. patient reports to be feeling okay today. She states that she is still having some abdominal cramping. States her BM's are dark brown and "mushy". admits to fatigue but denies any additional complaints today. Physical Exam 2 Constitutional: WD/WN, vitals as above Eyes: PERRL, conjunctivae normal, anicteric sclerae Respiratory: breathing unlabored Cardiovascular: well perfused Gastrointestinal (Abdomen): + lower abdominal tenderness Psychiatric: A+Ox3, euthymic affect Results & Data Results & Data Vital Signs (Past 12 Hours) Vital Signs Temp Pulse Pulse Resp BP BP Pulse Ox 09/23/24 15:28 70 09/23/24 15:20 36.7 C 72 16 137/52 L 94 09/23/24 13:24 09/23/24 11:26 36.4 C L 82 17 135/72 95 09/23/24 08:56 62 09/23/24 07:55 36.9 C 61 18 126/74 93 09/23/24 03:59 37.1 C 61 16 104/64 92 O2 Del Method 09/23/24 15:28 09/23/24 15:20 Room Air 09/23/24 13:24 Room Air 09/23/24 11:26 Room Air 09/23/24 08:56 09/23/24 07:55 Room Air 09/23/24 03:59 Room Air Laboratory Results 09/23/24 06:02 09/23/24 06:02 PG Care Time/CCT Total # of Minutes Spent Total Time Spent with Patient: Total time spent is greater than 50% in coordination of care (as documented) at patient's floor/unit and/or counseling patient: Coding Level of Care Code 95307 SUB INP/OBS CARE 2/35MIN Diagnoses Acute GI bleeding K92.2 Acute diverticulitis K57.92 Syncope and collapse R55
[2024-09-24 07:14] LABS: Hematocrit (blood only) 23.3 % (37.0-47.0); Mean Corpuscular Hemoglobin 30.9 pg (25.0-34.0); Mean Corpuscular Hgb Conc 34.3 g/dL (32.0-36.0); Platelet Count 233 K/uL (130-400); RDW Coefficient of Variation 13.2 % (11.5-14.5); RDW Standard Deviation 43.3 fL (36.4-46.3); Red Blood Count 2.59 M/uL (4.20-5.40); White Blood Count 11.63 K/ul (4.8-10.8)
[2024-09-24 07:46] LABS: Calcium 8.5 mg/dl (8.6-10.3); Potassium 3.5 mmol/L (3.5-5.1)
[2024-09-24 07:52] LABS: BUN Creatinine Ratio 7.5 (10-20); Creatinine Clr Calc Pharmacy 44.9 ml/min
--- NOTE | 2024-09-24 10:00 | Discharge Summary ---
Discharge Summary Date of Service September 24, 2024 Principal Dx & Hospital Course #1 = Principal Diagnosis (1) Acute GI bleeding: Massiel presents after two episodes of dark/purple bloody stools overnight with one episode of syncope. She did not hit her head. Recent foot surgery 09/08, started on ASA 81mg for DVT prevention and meloxicam for pain control taking q6 hours for the first 1-2 days, now 1-2 times per day. Acute blood loss anemia Hgb dropped 14.8 (on 08/12) Stool Occult Blood: positive - ER provider reports melena during exam Received 80mg IV Protonix in the ED, 40mg IV BID transitioned to Protonix 40mg BID PO outpatient until seen by GI. GI consult/progress note 09/22 recommending supportive care w/ IV PPI and IV abx outpatient colonoscopy 4-6 weeks upon discharge Avoid NSAIDs upon discharge. CBC stable at 8 day of discharge. BMP stable Repeat CBC in one week outpatient follow up with GI outpatient. (2) Acute diverticulitis: CT A/P: acute diverticulitis without evidence of perforation or abscess. WBC 14 on admission. Afebrile. Continue Zosyn, transitioned to PO Augmentin upon discharge for additional 7 days. (3) Syncope and collapse: CXR: no acute cardiopulmonary findings EKG: sinus bradycardia, no ST changes Patient reports recent echo completed last month as part of pre-operative vineet p. Suspect due to blood/volume loss Lisinopril/HCTZ - held, BP remains stable. - hold on discharge as BP remainder stable throughout hospital stay. Plan Chronic stable medical conditions: * gout allopurinol * HLD rosuvastatin * hypothyroid Synthroid Admission HPI Per Admitting Provider Massiel is a 74F with a past medical hx of Gout, HLD, HTN, hypothyroid and prediabetes. Recent right foot fourth and fifth digit hammertoe Correction on , baby aspirin daily since. She presents to the ER after 2 episodes of bloody stools. states she got up in the middle the night and had pain with her bowel movement and saw purpleish blood in the toilet. When she tried to stand up she felt very dizzy and weak and took a while to regain her strength. When she did finally stand up she had a syncopal episode. She denies hitting her head. She made back to bed and got up about 1 hour later and had another bowel movement with more clots at this time and blood. She states the blood just feels the toilet does not seem to be mixed in with the stool, she cannot really see the stool. She reports lower abdominal pain since the first bowel movement that has not resolved, however this is mild. Patient has had diverticulitis before with a history of colon resection. She denies a history of GI bleeding. Of note, patient had recent foot surgery on 09/08 and was placed on baby aspirin and has been taking meloxicam for pain. States for the first 1 to 2 days she was taking meloxicam every 6 hours. Over the last few days she is not taking the meloxicam 1-2 times a day. Recent changes in medications: thyroid medication, lower doses Take medications today: no Alcohol: no Smoking: none CPAP: no Code Status: DNR/DNI ER course: 80mg IV protonix Zosyn x1 Discharge Exam Constitutional WD/WN, vitals as above Eyes PERRL, conjunctivae normal, anicteric sclerae Respiratory breathing unlabored Cardiovascular well perfused Psychiatric A+Ox3, euthymic affect Discharge Plan Discharge Items Patient Disposition: Home - Self-Care Reason For Visit: DIVERTICULITIS, GIB Discharge Diagnosis: Diverticulitis, GI bleeding Activity: Resume your previous activity Non-emergency contact: Primary Care Provider Call non-emergency contact if: you have any medication questions, your symptoms worsen and you have a fever Follow-up/Referrals: Sirisha Vallejo DO [Primary Care Provider] - Diet: Low Fiber Ambulatory Orders: Complete Blood Count no Diff (Timed) Timeframe: [id number] Location: Determined by Patient Ordered By: Giovanna Degroot Attending Provider Instructions: Ms. Morejon, You were recently hospitalized for bloody stool and found to have an episode of diverticulitis. You were treated with IV antibiotics. Please see recommendations below regarding your discharge. 1. Please take Augmentin twice daily for the next 7 days. Your first dose will be this afternoon. Please take with food to avoid GI upset. 2. Please take pantoprazole twice daily until seen by gastroenterology outpatient. 3. Please follow a low fiber diet for the next 4-6 weeks. 4. Please follow up with gastroenterology outpatient. If you do not hear from their office by 09/28 please give their office a call. [phone] 5. Please follow up with your PCP within 1-2 weeks following discharge. Please hold your blood pressure medication until seen by PCP. Your Blood pressure has been normal during your hospital stay and you may not require this medication anymore. Please monitor your blood pressure at home and bring readings with you to your follow up visit. 6. Please obtain labs one week following discharge to reassess your blood counts. 7. Please avoid taking NSAIDs. Use Tylenol as needed for pain or fever. If you develop any black tarry stool, bright red blood in your stool, severe abdominal pain, fever, or chills please report back to the ER for further care. Sincerely, Giovanna Denton PA-C Pending Studies at Discharge: No Stand-Alone Forms: My [facility], Smoking Cessation Medications and DC Order Prescriptions: New amoxicillin-pot clavulanate 875-125 mg tablet 1 tab PO BID Qty: 14 0RF pantoprazole [Protonix] 40 mg tablet,delayed release (DR/EC) 40 mg PO BID Qty: 60 0RF Continued cyanocobalamin (vitamin B-12) [Vitamin B-12] 1,000 mcg Tablet 1,000 mcg PO QAM allopurinol 100 mg Tablet 100 mg PO QAM levothyroxine 75 mcg Tablet 75 mcg PO QAM rosuvastatin 10 mg Tablet 10 mg PO QAM potassium chloride [Klor-Con M10] 10 mEq Tablet,Er Particles/Crystals 20 meq PO QAM Held lisinopril-hydrochlorothiazide 20-25 mg Tablet 1 tab PO QAM Hold Instructions: Resume on 10/06/24. until seen by PCP Discharge Orders: Discharge Order (Routine); Ordered 09/24/24 Ordered By: Giovanna Bradley/Other Patient Handouts: Low-Fiber Diet, Diverticulitis Dc Admission Data Admit Date/Time: 09/20/24 16:08 Attending Provider: Jas Burgess Admit Provider: Zach Romero Primary Care Provider: Sirisha Vallejo Other Providers: Zach Romero; David Barahona Hospital Stay Data Consultations 09/20/24 15:20 ED Decision to Admit Stat 09/20/24 15:47 Consult Gastroenterology Routine Diagnostic Imagining Performed 09/20/24 12:42 CT abd pelvis IV con only Stat Pending Results Patient Have Any Pending Studies at Discharge: No Discharge Instructions Given to Patient (Per Discharging Provider) Ms. Morejon, Jamie were recently hospitalized for bloody stool and found to have an episode of diverticulitis. You were treated with IV antibiotics. Please see recommendations below regarding your discharge. 1. Please take Augmentin twice daily for the next 7 days. Your first dose will be this afternoon. Please take with food to avoid GI upset. 2. Please take pantoprazole twice daily until seen by gastroenterology outpatient. 3. Please follow a low fiber diet for the next 4-6 weeks. 4. Please follow up with gastroenterology outpatient. If you do not hear from their office by 09/28 please give their office a call. [phone] 5. Please follow up with your PCP within 1-2 weeks following discharge. Please hold your blood pressure medication until seen by PCP. Your Blood pressure has been normal during your hospital stay and you may not require this medication anymore. Please monitor your blood pressure at home and bring readings with you to your follow up visit. 6. Please obtain labs one week following discharge to reassess your blood counts. 7. Please avoid taking NSAIDs. Use Tylenol as needed for pain or fever. If you develop any black tarry stool, bright red blood in your stool, severe abdominal pain, fever, or chills please report back to the ER for further care. Sincerely, Giovanna Denton PA-C Total Time Total Time Spent Total Time Spent (In Minutes): 40 Total Time Includes: Examination of the Patient, Discharge Planning, Medication Reconciliation and Communication With Other Providers Coding Level of Care Code 38572 INP/OBS DISCH >30 MIN Diagnoses Acute GI bleeding K92.2 Acute diverticulitis K57.92 Syncope and collapse R55
== END 2024-09-24 10:45 | disposition home or self-care (01) | DRG 378 ==
LOC: ED 12:04 → 2W 16:08 → SUATTDRO 16:08 → 2W 20:52